=== PATIENT | male | born 1955 | race Hispanic/Latino ===

== ENCOUNTER 2018-05-24 20:17 | Emergency (ER) | payer OTHER ==
[2018-05-24] MEDS ORDERED: LIDOCAINE HCL-MPF 1% 2ML VIAL ONE (20:55)
[2018-05-24] MEDS ORDERED: LIDOCAINE 1%-EPI 1:100,000 20 ML VIAL IJ ONE (20:57)
[2018-05-24] MEDS ORDERED: AMOXICILLIN/POTASSIUM CLAV 875-125 TABLET PO ONE (21:06)
[2018-05-24] MEDS ORDERED: TETANUS/DIPHTHERIA TOXOID [ADULT] 0.5 ML VIAL IM ONE (21:06)
== END 2018-05-24 22:54 | disposition home or self-care (01) ==
LOC: EDH 20:17
DX: S01.81XA Laceration without foreign body of other part of head, initial encounter (principal); S70.372A Other superficial bite of left thigh, initial encounter; Z72.0 Tobacco use; W50.3XXA Accidental bite by another person, initial encounter; Y93.89 Activity, other specified; Y92.69 Other specified industrial and construction area as the place of occurrence of the external cause; Y99.8 Other external cause status
CPT/HCPCS: 12053; 90471; 90714; 99284; J3490